=== PATIENT | female | born 1975 | race Caucasian/White ===

== ENCOUNTER 2016-10-21 17:04 | Emergency (ER) | payer OTHER ==
--- NOTE | 2016-10-21 19:15 | ED CLINICAL REPORT ---
Clinical Report - Physicians/Mid Levels [facility] [address] [place] [address] 10/21/2016 17:05 [facility]: [id number] Time Seen: 17:30 Oct 21 2016. Arrived- By private vehicle. Historian- patient. CPT: ER phys charges level 3 plus (#[id number]). Remove FB ext ear can w/o anes (#[id number]). HISTORY OF PRESENT ILLNESS Chief Complaint: EARACHE. HEARING LOSS Both ears. Modifying factors. Not worsened by anything. Not relieved by anything. This started last night and is still present. Onset during light activity. Location- right ear and left ear. The pain is described as moderate. The patient has had moderate right ear pain and has had moderate left ear pain. She has had moderate right-sided hearing loss and moderate left-sided hearing loss. No nasal discharge or congestion, sinus pressure, complaint of foreign body in the ear or ear trauma. No recent barotrauma, tinnitus or sore throat. Similar symptoms previously: None. Recent medical care: Not recently seen/assessed. REVIEW OF SYSTEMS No fever, chills, cough, difficulty breathing or chest pain. No nausea, vomiting, diarrhea, abdominal pain or skin rash. All systems otherwise negative, except as recorded above. PAST HISTORY Breast Biopsy. Rt breast lumpectomy. Tubal Ligation. Back Pain. Prior Injury, Same Area. Dental Caries. Dizziness. Head Injury. Diabetes Mellitus. Neck Pain. Abscess. Drug Poisoning. Leukocytosis. Atypical Chest Pain. Cellulitis. Puncture Wound. Acute Pain. Abdominal Pain. Constipation. Lifestyle / Substance Problems. Bronchitis. Hidradenitis Suppurativa. Contusion. Fall. Myofascial Strain. Laceration. Chronic Back Pain. Asthma. SOCIAL HISTORY Former smoker. Occasional alcohol use. ADDITIONAL NOTES The nursing notes have been reviewed. PHYSICAL EXAM Vital Signs: 10/21/2016 17:18 BP: 145/86. HR: 89. RR: 20. O2 saturation: 100%. Temp: 98.8 F. Pain level now: 6/10. Appearance: Alert. Patient in mild distress. Eyes: Eyes normal inspection. Throat: Pharynx normal. Nose: Nose normal. No nasal discharge or tenderness to palpation/percussion over the sinuses. Ear (right): There is cerumen impaction in the external canal. No tenderness of the auricle. Normal mastoid. Ear (left): There is cerumen impaction in the external canal. No tenderness of the auricle. Normal mastoid. Neck: Normal inspection. CVS: Normal heart rate and rhythm. Respiratory: No respiratory distress. Breath sounds normal. Skin: Skin warm. Normal skin color. No rash. Extremities: Extremities exhibit normal ROM. Neuro: Oriented X 3. PROGRESS AND PROCEDURES Course of Care: Ears irrigated. Patient is stable. The patient's symptoms are now gone. Physical exam findings are improved. Patient/family counseled. Disposition: Discharged. CLINICAL IMPRESSION Impacted cerumen right ear and left ear. Left ear canal erythema and pain. INSTRUCTIONS Drink plenty of fluids. Warnings: Further evaluation is necessary. GENERAL WARNINGS: Return or contact your physician immediately if your condition worsens or changes unexpectedly, if not improving as expected, or if other problems arise. Prescription Medications: Cortisporin otic suspension: Instill 4 drops into affected ear every 6 hours for 1 week. Dispense ten (10) mL. No refills. Substitution is permissible. OTC Medications: Acetaminophen (available over the counter): take according to label instructions. Follow-up: Follow up with your doctor in one week if not better. Understanding of the discharge instructions verbalized by patient and family. (Electronically signed by Jacoby Hill MD 10/21/2016 23:31)
--- NOTE | 2016-10-21 19:15 | ED NURSING NOTES ---
Clinical Report - Nurses [facility] [address] [place] [address] 10/21/2016 17:05 Patient: SARAH KRISHNAMURTHY TRIAGE Triage time 17:18. Acuity: LEVEL 4. Chief Complaint: (Decreased heariong in both ears, left is worse than right. States her ears feel congested. Onset last night. Denies fever. Also c/o intermittent dizziness and balance problems.). SEPSIS SCREEN: Sepsis Screen. Negative (no infection suspected/documented). JOSE COMA SCORE: [place] Coma Scale: 15- eyes open spontaneously (4); best verbal response- oriented x 4 (5); best motor response- obeys commands (6). --17:26 Allen Rios R.N. 17:18 10/21/16. BP: 145/86 (regular adult cuff) taken on the left arm, while sitting. HR: 89. RR: 20. O2 saturation: 100% on room air. Temp: 98.8 F. Pain level now: 10/03. --17:26 Allen Rios R.N. Weight: 95.7 kg stated. Height/Length: 64 inches Per Patient. BMI: 36.2. --17:23 Allen Rios R.N. Medications None. --17:23 Allen Rios R.N. Allergies No Known Drug Allergy. --17:23 Allen Rios R.N. History Arrived by private vehicle. Historian: patient. Accompanied by family. SOCIAL HX: Former smoker- less than 1 pack per day. Occasional alcohol use. No drug use. ABUSE ASSESSMENT: No report of abuse. --17:26 Allen Rios R.N. PROBLEMS: Back Pain. Prior Injury, Same Area. Dental Caries. Dizziness. Head Injury. Diabetes Mellitus. Neck Pain. Abscess. Drug Poisoning. Leukocytosis. Atypical Chest Pain. Cellulitis. Puncture Wound. Acute Pain. Abdominal Pain. Constipation. Lifestyle / Substance Problems. Bronchitis. Hidradenitis Suppurativa. Contusion. Fall. Myofascial Strain. Laceration. Chronic Back Pain. Asthma. --17:19 Allen Rios R.N. ADDITIONAL SURGERIES: Breast Biopsy. Rt breast lumpectomy. Tubal Ligation. --17:19 Allen Rios R.N. Interventions ID band on patient. To treatment room. --17:26 Allen Rios R.N. PHYSICAL ASSESSMENT Ambulatory to room. GENERAL / NEURO / PSYCH: Alert. Oriented X 4. Appears in pain. HEENT: Pupils equal, round and reactive to light. No facial asymmetry noted. ( Bilat ear pressure and pain, decreased hearing bilat). Mucous membranes are pink. RESPIRATORY: Respirations not labored. Chest nontender. Breath sounds within normal limits. CVS: Capillary refill less than 2 seconds. Pulses within normal limits. SKIN: Skin is warm and dry. Normal skin turgor. --17:29 Allen Rios R.N. NURSING PROGRESS NOTES Head of bed elevated. Reassurance given. Two patient identifiers checked. Call light placed in reach. Bed placed in lowest position. Brakes of bed on. Patient ready for evaluation- chart flagged. --17:30 Allen Rios R.N. DISPOSITION / DISCHARGE Condition at departure: improved. No learning barriers present. Discharge instructions provided and reviewed with the patient. Reviewed medication(s) side effects, precautions, dosing and course information. Prescription(s) given to the patient. Reviewed referral to a primary care physician for followup. Patient verbalized understanding. Written instructions provided in Somali. The patient was discharged home and accompanied by cupola tender helper. She left the Emergency Department ambulatory and via private vehicle. Truck Manager driving. --19:33 Luis Mckeon R.N. 19:32 10/21/16. BP: 139/82. HR: 79. RR: 16. O2 saturation: 100%. Temp: 98.1 F. Pain level now: 0/10. --19:33 Luis Mckeon R.N. Departure time: 19:34. --19:34 Luis Mckeon R.N. Locked/Released at 10/21/2016 19:34 by Luis Mckeon R.N.
--- NOTE | 2016-10-21 19:15 | ED ORDER SUMMARY ---
..... Patient: SARAH KRISHNAMURTHY OrderSheet [facility] VisitID: [id number] [place] [address] 41y, F Registration Date/Time: 10/21/2016 ORDER SHEET Weight: 95.7 kg (stated) Allergies: No Known Drug Allergy GENERAL ORDERS: - (Bilateral ear irrigation) (17:42 10/21/2016 Gilma RANGEL) (Ack 17:50 Sheldon R.N.) (19:11 Sheldon R.N.) MEDICATION ORDERS: IV FLUIDS: ORDER SHEET NOTES: [Electronically signed by Luis Mckeon R.N. (19:34 10/21/2016)] [Electronically signed by Jacoby Hill MD (23:31 10/21/2016)] [Electronically locked/signed by Luis Mckeon R.N. (19:34 10/21/2016)]
--- NOTE | 2016-10-21 19:15 | ED ORDER SUMMARY ---
..... Patient: SARAH KRISHNAMURTHY OrderSheet [facility] VisitID: [id number] [place] [address] 41y, F Registration Date/Time: 10/21/2016 ORDER SHEET Weight: 95.7 kg (stated) Allergies: No Known Drug Allergy GENERAL ORDERS: - (Bilateral ear irrigation) (17:42 10/21/2016 Gilma RANGEL) (Ack 17:50 Sheldon R.N.) (19:11 Sheldon R.N.) MEDICATION ORDERS: IV FLUIDS: ORDER SHEET NOTES: [Electronically signed by Luis Mckeon R.N. (19:34 10/21/2016)] [Electronically signed by Jacoby Hill MD (23:31 10/21/2016)] [Electronically locked/signed by Luis Mckeon R.N. (19:34 10/21/2016)]
--- NOTE | 2016-10-21 19:15 | ED CLINICAL REPORT ---
Clinical Report - Physicians/Mid Levels [facility] [address] [place] [address] 10/21/2016 17:05 [id number] Time Seen: 17:30 Oct 21 2016. Arrived- By private vehicle. Historian- patient. CPT: ER phys charges level 3 plus (#[id number]). Remove FB ext ear can w/o anes (#[id number]). HISTORY OF PRESENT ILLNESS Chief Complaint: EARACHE. HEARING LOSS Both ears. Modifying factors. Not worsened by anything. Not relieved by anything. This started last night and is still present. Onset during light activity. Location- right ear and left ear. The pain is described as moderate. The patient has had moderate right ear pain and has had moderate left ear pain. She has had moderate right-sided hearing loss and moderate left-sided hearing loss. No nasal discharge or congestion, sinus pressure, complaint of foreign body in the ear or ear trauma. No recent barotrauma, tinnitus or sore throat. Similar symptoms previously: None. Recent medical care: Not recently seen/assessed. REVIEW OF SYSTEMS No fever, chills, cough, difficulty breathing or chest pain. No nausea, vomiting, diarrhea, abdominal pain or skin rash. All systems otherwise negative, except as recorded above. PAST HISTORY Breast Biopsy. Rt breast lumpectomy. Tubal Ligation. Back Pain. Prior Injury, Same Area. Dental Caries. Dizziness. Head Injury. Diabetes Mellitus. Neck Pain. Abscess. Drug Poisoning. Leukocytosis. Atypical Chest Pain. Cellulitis. Puncture Wound. Acute Pain. Abdominal Pain. Constipation. Lifestyle / Substance Problems. Bronchitis. Hidradenitis Suppurativa. Contusion. Fall. Myofascial Strain. Laceration. Chronic Back Pain. Asthma. SOCIAL HISTORY Former smoker. Occasional alcohol use. ADDITIONAL NOTES The nursing notes have been reviewed. PHYSICAL EXAM Vital Signs: 10/21/2016 17:18 BP: 145/86. HR: 89. RR: 20. O2 saturation: 100%. Temp: 98.8 F. Pain level now: 6/10. Appearance: Alert. Patient in mild distress. Eyes: Eyes normal inspection. Throat: Pharynx normal. Nose: Nose normal. No nasal discharge or tenderness to palpation/percussion over the sinuses. Ear (right): There is cerumen impaction in the external canal. No tenderness of the auricle. Normal mastoid. Ear (left): There is cerumen impaction in the external canal. No tenderness of the auricle. Normal mastoid. Neck: Normal inspection. CVS: Normal heart rate and rhythm. Respiratory: No respiratory distress. Breath sounds normal. Skin: Skin warm. Normal skin color. No rash. Extremities: Extremities exhibit normal ROM. Neuro: Oriented X 3. PROGRESS AND PROCEDURES Course of Care: Ears irrigated. Patient is stable. The patient's symptoms are now gone. Physical exam findings are improved. Patient/family counseled. Disposition: Discharged. CLINICAL IMPRESSION Impacted cerumen right ear and left ear. Left ear canal erythema and pain. INSTRUCTIONS Drink plenty of fluids. Warnings: Further evaluation is necessary. GENERAL WARNINGS: Return or contact your physician immediately if your condition worsens or changes unexpectedly, if not improving as expected, or if other problems arise. Prescription Medications: Cortisporin otic suspension: Instill 4 drops into affected ear every 6 hours for 1 week. Dispense ten (10) mL. No refills. Substitution is permissible. OTC Medications: Acetaminophen (available over the counter): take according to label instructions. Follow-up: Follow up with your doctor in one week if not better. Understanding of the discharge instructions verbalized by patient and family. (Electronically signed by Jacoby Hill MD 10/21/2016 23:31)
--- NOTE | 2016-10-21 19:15 | ED NURSING NOTES ---
Clinical Report - Nurses [facility] [address] [place] [address] 10/21/2016 17:05 Patient: SARAH KRISHNAMURTHY TRIAGE Triage time 17:18. Acuity: LEVEL 4. Chief Complaint: (Decreased heariong in both ears, left is worse than right. States her ears feel congested. Onset last night. Denies fever. Also c/o intermittent dizziness and balance problems.). SEPSIS SCREEN: Sepsis Screen. Negative (no infection suspected/documented). JOSE COMA SCORE: [place] Coma Scale: 15- eyes open spontaneously (4); best verbal response- oriented x 4 (5); best motor response- obeys commands (6). --17:26 Allen Rios R.N. 17:18 10/21/16. BP: 145/86 (regular adult cuff) taken on the left arm, while sitting. HR: 89. RR: 20. O2 saturation: 100% on room air. Temp: 98.8 F. Pain level now: 10/03. --17:26 Allen Rios R.N. Weight: 95.7 kg stated. Height/Length: 64 inches Per Patient. BMI: 36.2. --17:23 Allen Rios R.N. Medications None. --17:23 Allen Rios R.N. Allergies No Known Drug Allergy. --17:23 Allen Rios R.N. History Arrived by private vehicle. Historian: patient. Accompanied by family. SOCIAL HX: Former smoker- less than 1 pack per day. Occasional alcohol use. No drug use. ABUSE ASSESSMENT: No report of abuse. --17:26 Allen Rios R.N. PROBLEMS: Back Pain. Prior Injury, Same Area. Dental Caries. Dizziness. Head Injury. Diabetes Mellitus. Neck Pain. Abscess. Drug Poisoning. Leukocytosis. Atypical Chest Pain. Cellulitis. Puncture Wound. Acute Pain. Abdominal Pain. Constipation. Lifestyle / Substance Problems. Bronchitis. Hidradenitis Suppurativa. Contusion. Fall. Myofascial Strain. Laceration. Chronic Back Pain. Asthma. --17:19 Allen Rios R.N. ADDITIONAL SURGERIES: Breast Biopsy. Rt breast lumpectomy. Tubal Ligation. --17:19 Allen Rios R.N. Interventions ID band on patient. To treatment room. --17:26 Allen Rios R.N. PHYSICAL ASSESSMENT Ambulatory to room. GENERAL / NEURO / PSYCH: Alert. Oriented X 4. Appears in pain. HEENT: Pupils equal, round and reactive to light. No facial asymmetry noted. ( Bilat ear pressure and pain, decreased hearing bilat). Mucous membranes are pink. RESPIRATORY: Respirations not labored. Chest nontender. Breath sounds within normal limits. CVS: Capillary refill less than 2 seconds. Pulses within normal limits. SKIN: Skin is warm and dry. Normal skin turgor. --17:29 Allen Rios R.N. NURSING PROGRESS NOTES Head of bed elevated. Reassurance given. Two patient identifiers checked. Call light placed in reach. Bed placed in lowest position. Brakes of bed on. Patient ready for evaluation- chart flagged. --17:30 Allen Rios R.N. DISPOSITION / DISCHARGE Condition at departure: improved. No learning barriers present. Discharge instructions provided and reviewed with the patient. Reviewed medication(s) side effects, precautions, dosing and course information. Prescription(s) given to the patient. Reviewed referral to a primary care physician for followup. Patient verbalized understanding. Written instructions provided in [place]al[place]. The patient was discharged home and accompanied by supervisor crack off. She left the Emergency Department ambulatory and via private vehicle. Garbage Pick Up Man driving. --19:33 Luis Mckeon R.N. 19:32 10/21/16. BP: 139/82. HR: 79. RR: 16. O2 saturation: 100%. Temp: 98.1 F. Pain level now: 0/10. --19:33 Luis Mckeon R.N. Departure time: 19:34. --19:34 Luis Mckeon R.N. Locked/Released at 10/21/2016 19:34 by Luis Mckeon R.N.
--- NOTE | 2016-10-21 23:31 | ED MED RECONCILIATION SUMMARY ---
Patient: SARAH KRISHNAMURTHY Medication Reconciliation Report [facility] VisitID: [id number] [place] [address] 41y, F Registration Date/Time: 10/21/2016 Weight: 95.7 kg Height/Length: 64 in. BMI: 36.2 ALLERGIES: No Known Drug Allergy The patient's Home Medications are listed below: NONE. The source(s) of the original Home Medication information: Not obtained. The following Medications were given to the patient in the Emergency Department: None. The following Medications were prescribed to the patient: Acetaminophen (available over the counter): take according to label instructions. -- Jacoby Hill MD Cortisporin otic suspension: Instill 4 drops into affected ear every 6 hours for 1 week. Dispense ten (10) mL. No refills. Substitution is permissible. -- Jacoby Hill MD
--- NOTE | 2016-10-21 23:31 | ED DISCHARGE INSTRUCTIONS ---
Patient: SARAH KRISHNAMURTHY General Instructions [facility] VisitID: [id number] [place] [address] 41y, F Registration Date/Time: 10/21/2016 Impacted cerumen right ear and left ear. Left ear canal erythema and pain. INSTRUCTIONS Drink plenty of fluids. Warnings: Further evaluation is necessary. GENERAL WARNINGS: Return or contact your physician immediately if your condition worsens or changes unexpectedly, if not improving as expected, or if other problems arise. Prescription Medications: Cortisporin otic suspension: Instill 4 drops into affected ear every 6 hours for 1 week. Dispense ten (10) mL. No refills. Substitution is permissible. OTC Medications: Acetaminophen (available over the counter): take according to label instructions. Follow-up: Follow up with your doctor in one week if not better. Understanding of the discharge instructions verbalized by patient and family. ADDITIONAL INFORMATION Earwax (Treated) Everyone produces earwax from the lining of the ear canal. It serves to lubricate and protect the ear. The wax that forms in the canal slowly moves toward the outside of the ear and falls out. Sometimes there will be a build-up of wax in the ear canal causing a blockage and loss of hearing. An ear wax buildup was removed from your ear today. Home Care Preventing Future Problems If you have a tendency to build up wax in the ear canal, you should clear the wax at home on a regular basis (about once every six months ) before it causes discomfort. Unless a prescription medicine was given, you may use an dmdo-clw-gpzsjch product made for clearing earwax (such as Debrox or Murine Earwax Drops). These contain carbamide peroxide and are available zhrl-jio-kfsqcsc in a kit with a small bulb syringe. To use: lie down with the blocked ear facing upward. Apply one dropper full of medicine and wait a few minutes. Wiggle the outer ear to get the solution to enter the canal. Lean over a sink or basin with the blocked ear turned downward. Use a rubber bulb syringe filled with LUKEWARM water to rinse the ear several times. Use gentle pressure only. You may need to repeat the irrigation several times before the wax flows out. If you are having trouble draining all of the water out of your ear canal after this procedure, you may put a few drops of rubbing alcohol into the ear canal. This will help evaporate the remaining water. Do Not DO NOT use cold water to rinse the ear since this will make you dizzy. DO NOT perform this procedure if you have an ear infection (ear pain, fever, or fluid draining from the ear). DO NOT perform this procedure if you have a punctured eardrum. DO NOT use cotton applicators (Q-tips), matches, toothpicks, jaycee pins, keys or other objects to clean the ear canal. This can cause infection of the ear canal or rupture of the eardrum. Because of their size and shape, it is common for cotton applicators to push the ear wax deeper into the ear canal instead of removing it. This can make matters worse. Follow Up with your doctor or this facility as directed by our staff. Get Prompt Medical Attention if any of the following occur: Worsening ear pain Fever of 100.4F (38C) or higher, or as directed by your healthcare provider Hearing does not return to normal after three days of treatment Fluid drainage or bleeding from the ear canal Swelling, redness or tenderness of the outer ear Headache, neck pain or stiff neck You have been given the following additional information: Ear Wax, Treated (Electronically signed by Jacoby Hill MD 10/21/2016 23:31)
--- NOTE | 2016-10-21 23:31 | ED MAR SUMMARY ---
..... Medication Administration Record [facility] [address] [place] [id number] Patient: SARAH KRISHNAMURTHY Visit ID: [id number] 41y, F Weight: 95.7 kg Height/Length: 64 in BMI: 36.2 ALLERGIES: No Known Drug Allergy
--- NOTE | 2016-10-21 23:31 | ED MED RECONCILIATION SUMMARY ---
Patient: SARAH KRISHNAMURTHY Medication Reconciliation Report [facility] VisitID: [id number] [place] [address] 41y, F Registration Date/Time: 10/21/2016 Weight: 95.7 kg Height/Length: 64 in. BMI: 36.2 ALLERGIES: No Known Drug Allergy The patient's Home Medications are listed below: NONE. The source(s) of the original Home Medication information: Not obtained. The following Medications were given to the patient in the Emergency Department: None. The following Medications were prescribed to the patient: Acetaminophen (available over the counter): take according to label instructions. -- Jacoby Hill MD Cortisporin otic suspension: Instill 4 drops into affected ear every 6 hours for 1 week. Dispense ten (10) mL. No refills. Substitution is permissible. -- Jacoby Hill MD
--- NOTE | 2016-10-21 23:31 | ED DISCHARGE INSTRUCTIONS ---
Patient: SARAH KRISHNAMURTHY General Instructions [facility] VisitID: [id number] [place] [address] 41y, F Registration Date/Time: 10/21/2016 Impacted cerumen right ear and left ear. Left ear canal erythema and pain. INSTRUCTIONS Drink plenty of fluids. Warnings: Further evaluation is necessary. GENERAL WARNINGS: Return or contact your physician immediately if your condition worsens or changes unexpectedly, if not improving as expected, or if other problems arise. Prescription Medications: Cortisporin otic suspension: Instill 4 drops into affected ear every 6 hours for 1 week. Dispense ten (10) mL. No refills. Substitution is permissible. OTC Medications: Acetaminophen (available over the counter): take according to label instructions. Follow-up: Follow up with your doctor in one week if not better. Understanding of the discharge instructions verbalized by patient and family. ADDITIONAL INFORMATION Earwax (Treated) Everyone produces earwax from the lining of the ear canal. It serves to lubricate and protect the ear. The wax that forms in the canal slowly moves toward the outside of the ear and falls out. Sometimes there will be a build-up of wax in the ear canal causing a blockage and loss of hearing. An ear wax buildup was removed from your ear today. Home Care Preventing Future Problems If you have a tendency to build up wax in the ear canal, you should clear the wax at home on a regular basis (about once every six months ) before it causes discomfort. Unless a prescription medicine was given, you may use an ujks-uon-loxrass product made for clearing earwax (such as Debrox or Murine Earwax Drops). These contain carbamide peroxide and are available [id number] in a kit with a small bulb syringe. To use: lie down with the blocked ear facing upward. Apply one dropper full of medicine and wait a few minutes. Wiggle the outer ear to get the solution to enter the canal. Lean over a sink or basin with the blocked ear turned downward. Use a rubber bulb syringe filled with LUKEWARM water to rinse the ear several times. Use gentle pressure only. You may need to repeat the irrigation several times before the wax flows out. If you are having trouble draining all of the water out of your ear canal after this procedure, you may put a few drops of rubbing alcohol into the ear canal. This will help evaporate the remaining water. Do Not DO NOT use cold water to rinse the ear since this will make you dizzy. DO NOT perform this procedure if you have an ear infection (ear pain, fever, or fluid draining from the ear). DO NOT perform this procedure if you have a punctured eardrum. DO NOT use cotton applicators (Q-tips), matches, toothpicks, jaycee pins, keys or other objects to clean the ear canal. This can cause infection of the ear canal or rupture of the eardrum. Because of their size and shape, it is common for cotton applicators to push the ear wax deeper into the ear canal instead of removing it. This can make matters worse. Follow Up with your doctor or this facility as directed by our staff. Get Prompt Medical Attention if any of the following occur: Worsening ear pain Fever of 100.4F (38C) or higher, or as directed by your healthcare provider Hearing does not return to normal after three days of treatment Fluid drainage or bleeding from the ear canal Swelling, redness or tenderness of the outer ear Headache, neck pain or stiff neck You have been given the following additional information: Ear Wax, Treated (Electronically signed by Jacoby Hill MD 10/21/2016 23:31)
--- NOTE | 2016-10-21 23:31 | ED MAR SUMMARY ---
..... Medication Administration Record [facility] [address] [place] [id number] Patient: SARAH KRISHNAMURTHY Visit ID: [id number] 41y, F Weight: 95.7 kg Height/Length: 64 in BMI: 36.2 ALLERGIES: No Known Drug Allergy
== END 2016-10-21 19:39 | disposition home or self-care (01) ==
LOC: ED SRH 17:04
DX: H61.23 Impacted cerumen, bilateral (principal); L53.8 Other specified erythematous conditions; H92.02 Otalgia, left ear; E11.9 Type 2 diabetes mellitus without complications; Z87.891 Personal history of nicotine dependence